=== PATIENT | female | born 1985 | race Caucasian/White ===

== ENCOUNTER 2019-02-14 22:01 | Emergency (ER) | payer BC ==
[2019-02-14] MEDS: LIDOCAINE/MYLANTA 40 ML BTL PO (22:42)
== END 2019-02-15 00:12 | disposition home or self-care (01) ==
LOC: E/R 22:01
DX: T18.9XXA Foreign body of alimentary tract, part unspecified, initial encounter (principal); R05 Cough; X58.XXXA Exposure to other specified factors, initial encounter; Y92.9 Unspecified place or not applicable; Z87.891 Personal history of nicotine dependence
CPT/HCPCS: 70360; 71045; 99284-25